=== PATIENT | female | born 1995 | race Caucasian/White ===

== ENCOUNTER 2019-12-14 00:35 | Inpatient (IN) | payer BC, OTHER ==
[2019-12-14 01:10] VITALS: BMI 22.3
--- NOTE | 2019-12-14 02:50 | PDOC ---
Attending Attestation - Resident Resident Name: Jaime Gloria - ED Attending Attestation I have performed the following: I have examined & evaluated the patient, The case was reviewed & discussed with the resident, I agree w/resident's findings & plan - HPI HPI: 12/14/19 04:49 Pt comes with fever and diarrhea. She has a concerning structural heart history. Pt ate food at a constitution party, but was the only one amonge her friends to have a fever and diarrhea. 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 12/14/19 07:02 Pt was given an oral dose of 1g zithromax. 12/14/19 19:59 Pt will be signed out to the day ER doctor. Discharge - Discharge Information Problems reviewed: Yes Clinical Impression/Diagnosis: Fever, Diarrhea, Tachycardia - Follow up/Referral - Patient Discharge Instructions - Post Discharge Activity
[2019-12-14] MEDS ORDERED: SODIUM CHLORIDE 0.9% 500 ML INFUS.BAG IV ONE ×2 (02:51→05:34)
[2019-12-14] MEDS ORDERED: ACETAMINOPHEN 1000 MG/100 ML VIAL (NON FORMULARY) IVPB ONE (02:51)
[2019-12-14] MEDS ORDERED: ACETAMINOPHEN INJECTION 100 ML IVPB ONE (03:04)
[2019-12-14] MEDS ORDERED: ONDANSETRON 4 MG/2 ML VIAL IVPUSH ONE (03:11)
[2019-12-14 03:21] LABS: BASO % 0.2 % (0-2.0); HEMATOCRIT 37.6 % (32.4-45.2); HEMOGLOBIN 13.3 GM/dL (10.7-15.3); LYMPH % 4.9 % (8-40); MCH 33.7 pg (25.7-33.7); MCHC 35.3 g/dl (32.0-36.0); MEAN CELL VOLUME 95.4 fl (80-96); MEAN PLT VOLUME 8.2 fl (7.5-11.1); MONO % 3.5 % (3.8-10.2); NEUT % 91.4 % (42.8-82.8); PLATELET COUNT 224 K/MM3 (134-434); RBC 3.95 M/mm3 (3.60-5.2); RDW 12.3 % (11.6-15.6); WHITE BLOOD COUNT 10.4 K/mm3 (4.0-10.0)
[2019-12-14 03:35] LABS: INR 1.26 (0.83-1.09); PROTHROMBIN TIME (PATIENT) 14.9 SEC (9.7-13.0)
[2019-12-14 03:41] LABS: ALBUMIN 3.4 g/dl (3.4-5.0); ALK PHOS 53 U/L (45-117); ANION GAP 8 MMOL/L (8-16); BILIRUBIN,TOTAL 0.6 mg/dL (0.2-1); BLOOD UREA NITROGEN 4.1 mg/dL (7-18); CALCIUM 8.5 mg/dL (8.5-10.1); CHLORIDE 102 mmol/L (98-107); CO2 23 mmol/L (21-32); CREATININE 0.7 mg/dL (0.55-1.3); GLUCOSE,RANDOM 106 mg/dL (74-106); POTASSIUM 3.3 mmol/L (3.5-5.1); SGOT/AST 8 U/L (15-37); SGPT/ALT 11 U/L (13-61); SODIUM 133 mmol/L (136-145); TOT PROT 7.1 g/dl (6.4-8.2)
[2019-12-14] MEDS ORDERED: MAGNESIUM SULF 50% (8.12 MEQ/2 ML-1 GM VIAL) IVPB ONE (04:26)
[2019-12-14] MEDS ORDERED: POTASSIUM CHLORIDE TABS 20 MEQ TABLET.ER (FP) PO ONE (04:26)
[2019-12-14] MEDS ORDERED: POTASSIUM CHLORIDE ORAL LIQUID 20 MEQ/15 ML ONE (04:28)
[2019-12-14] MEDS ORDERED: MAGNESIUM SULFATE IN WATER 2 GM/50 ML IVPB IVPB ONE (04:29)
[2019-12-14 04:30] LABS: HCG,QUALITATIVE URINE Negative
[2019-12-14 04:50] LABS: URINE APPEARANCE CLEAR; URINE BILIRUBIN NEGATIVE (NEGATIVE); URINE COLOR YELLOW; URINE GLUCOSE (UA) NEGATIVE (NEGATIVE); URINE KETONE TRACE (NEGATIVE); URINE LEUK ESTERASE NEGATIVE (NEGATIVE); URINE NITRITE NEGATIVE (NEGATIVE); URINE PROTEIN NEGATIVE (NEGATIVE); URINE UROBILINOGEN 0.2 mg/dL (0.2-1.0)
--- NOTE | 2019-12-14 05:19 | PDOC ---
History of Present Illness - General Chief Complaint: Diarrhea Stated Complaint: DIARRHEA Time Seen by Provider: 12/14/19 02:30 - History of Present Illness Initial Comments: HPI Pt is a 24 yo M with PMH of VSD in childhood (pt reports it has now closed) and regurgitant valve (pt unsure which valve; follows with Dr. Kurtz - cardiology) presenting with 1 day history fever (101 at home) and diarrhea for 1 day. Pt reports she developed a fever and diarrhea the evening before she is coming in. She reports at least 15 episodes of watery, non-bloody diarrhea. Also with associated nausea, mild-moderate cramping abdominal pain, generalized weakness, myalgias, and chest tightness that resembles episodes of anxiety she has felt in the past. Denies vomiting, constipation, sick contacts, recent travel, cough, congestion, rhinorrhea, SOB, wheezing, sore throat, or dysuria. Of note, pt had a "foreign beef" several days ago with a friend. The friend had abdominal discomfort/pain but no diarrhea. PMHX: as in HPI PSHX: as in HPI Meds: none Allergies: nkda Tob: denies Etoh: ocassional Rec drugs: denies PCP: Dr. Bird MARTINEZ GENERAL/CONSTITUTIONAL: + fevers, chills, myalgia, generalized weakness, HEAD, EYES, EARS, NOSE AND THROAT: No change in vision. No ear pain or discharge. No sore throat. CARDIOVASCULAR: No chest pain or shortness of breath; + chest tightness RESPIRATORY: No cough, wheezing, or hemoptysis. GASTROINTESTINAL: No vomiting or constipation. + nausea, watery diarrhea, generalized abdominal pain GENITOURINARY: No dysuria, frequency, or change in urination. MUSCULOSKELETAL: No joint or muscle swelling or pain. No neck or back pain. SKIN: No rash NEUROLOGIC: No headache, vertigo, loss of consciousness, or change in strength/sensation. ENDOCRINE: No increased thirst. No abnormal weight change HEMATOLOGIC/LYMPHATIC: No anemia, easy bleeding, or history of blood clots. ALLERGIC/IMMUNOLOGIC: No hives or skin allergy. PE GENERAL: Awake, alert, and fully oriented, in no acute distress HEAD: No signs of trauma, normocephalic, atraumatic EYES: PERRLA, EOMI, sclera anicteric, conjunctiva clear ENT: Auricles normal inspection, hearing grossly normal, nares patent, oropharynx clear without exudates. Dry mucosa. NECK: Normal ROM, supple, no lymphadenopathy, JVD, or masses LUNGS: No distress, speaks full sentences, clear to auscultation bilaterally HEART: Tachycardia and regular rhythm, normal S1 and S2, no murmurs, rubs or gallops, peripheral pulses normal and equal bilaterally. ABDOMEN: Soft, nontender, normoactive bowel sounds. Mild discomfort to palpation but no tenderness. EXTREMITIES : Normal inspection, Normal range of motion, no edema. No clubbing or cyanosis. NEUROLOGICAL: Cranial nerves II through XII grossly intact. Normal speech, normal gait, no focal sensorimotor deficits SKIN: Warm, Dry, normal turgor, no rashes or lesions noted 12/14/19 06:21 Past History - Medical History Allergies/Adverse Reactions: Allergies Allergy/AdvReac Type Severity Reaction Status Date / Time No Known Allergies Allergy Verified 12/14/19 00:45 Home Medications: Ambulatory Orders No Home Medications 0 dose .ROUTE UTDICT 10/05/13 Seizures: Yes - Reproductive History Is Patient Now?: No - Immunization History Immunization Up to Date: Yes - Psycho-Social/Smoking History Smoking Status: No Smoking History: Never smoked Have you smoked in the past 12 months: No Number of Cigarettes Smoked Daily: 0 Information on smoking cessation initiated: No - Substance Abuse Hx (Audit-C & DAST Scrn) How often the patient has a drink containing alcohol: Never Score: In Men: 4 or > Positive; In Women: 3 or > Positive: 0 Screen Result (Pos requires Nsg. Audit-10AR): Negative In the last yr the pt used illegal drug/Rx for NonMed reason: No Score: Yes response is considered Positive: 0 Screen Result (Positive result requires Nsg. DAST-10): Negative *Physical Exam - Vital Signs Last Vital Signs Temp Pulse Resp BP Pulse Ox 97.9 F 104 H 18 105/69 98 12/14/19 03:51 12/14/19 03:41 12/14/19 03:41 12/14/19 00:45 12/14/19 03:41 ED Treatment Course - LABORATORY CBC & Chemistry Diagram: 12/14/19 03:01 12/14/19 03:01 - ADDITIONAL ORDERS Additional order review: Laboratory Results 12/14/19 12/14/1920 03:45 03:01 03:01 PT with INR 14.90 H INR 1.26 H Sodium 133 L Potassium 3.3 L Chloride 102 Carbon Dioxide 23 Anion Gap 8 BUN 4.1 L Creatinine 0.7 Est GFR (CKD-EPI)AfAm 141.54 Est GFR (CKD-EPI)NonAf 122.12 Random Glucose 106 Calcium 8.5 Total Bilirubin 0.6 AST 8 L ALT 11 L Alkaline Phosphatase 53 Total Protein 7.1 Albumin 3.4 Urine Color Yellow Urine Appearance Clear Urine pH 6.0 Ur Specific Pearce 1.009 L Urine Protein Negative Urine Glucose (UA) Negative Urine Ketones Trace H Urine Blood Negative Urine Nitrite Negative Urine Bilirubin Negative Urine Urobilinogen 0.2 Ur Leukocyte Esterase Negative Urine HCG, Qual Negative 12/14/19 03:01 RBC 3.95 MCV 95.4 MCHC 35.3 RDW 12.3 MPV 8.2 Neutrophils % 91.4 H Lymphocytes % 4.9 L D Monocytes % 3.5 L Eosinophils % 0.0 Basophils % 0.2 - Medications Given in the ED: ED Medications Discontinued Medications Generic Name Dose Route Start Last Admin Trade Name Freq PRN Reason Stop Dose Admin Acetaminophen 1,000 mg 12/14/19 02:51 12/14/19 03:07 Ofirmev Injection - IVPB 12/14/19 02:52 1,000 mg ONCE ONE Administration Magnesium Sulfate 2 gm 12/14/19 04:26 12/14/19 04:33 Magnesium Sulfate IVPB 12/14/19 04:27 2 gm ONCE ONE Administration Ondansetron HCl 4 mg 12/14/19 03:11 12/14/19 03:21 Zofran Injection IVPUSH 12/14/19 03:12 4 mg ONCE ONE Administration Potassium Chloride 40 meq 12/14/19 04:26 12/14/19 04:33 K-Dur - PO 12/14/19 04:27 40 meq ONCE ONE Administration Sodium Chloride 1,000 ml 12/14/19 02:51 12/14/19 03:04 Normal Saline - IV 12/14/19 02:52 1,000 ml ONCE ONE Administration Medical Decision Making - Medical Decision Making MDM Pt is a 24 yo M with PMH of VSD in childhood (pt reports it has now closed) and regurgitant valve (pt unsure which valve; follows with Dr. Kurtz - cardiology) presenting with 1 day history fever (101 at home) and diarrhea for 1 day. DDX including but not limited to: E. Coli infection, viral gastroenteritis, less likely but will r/o appendicitis clinically, UTI W/U: -CBC, CMP, UA, blood culture TX: - IVF hydration - IV tylenol - IV zofran 12/14/19 05:19 -Labs with mild leukocytosis (10.5), Na 133, K 3.3 -Will given KCl, and Mg Sulfate. 12/14/19 05:27 - Pt remains tachycardic after IV fluids and IV tylenol - In setting of valvular defect, concern for possible bacteremia - Will give azithromycin and plan to admit - Will get EKG 12/14/19 05:39 - EKG with NSR, sinus tachycardia (103 bpm) 12/14/19 07:06 Pt signed out to admitting team. Stool culture and C. Diff panel added, per admitting team request. 12/14/19 07:20 Discharge - Discharge Information Problems reviewed: Yes Clinical Impression/Diagnosis: Fever, Diarrhea, Tachycardia - Follow up/Referral Referrals: Pillo Ferreira MD [Primary Care Provider] - - Patient Discharge Instructions - Post Discharge Activity
[2019-12-14] MEDS ORDERED: AZITHROMYCIN 500 MG TABLET PO ONE (05:33)
[2019-12-14] MEDS ORDERED: AZITHROMYCIN 250 MG TABLET ONE (05:38)
[2019-12-14 06:05] LABS: PLATELET ESTIMATE ADEQUATE
[2019-12-14] MEDS ORDERED: ONDANSETRON 4 MG/2 ML VIAL IVPUSH PRN (08:21)
--- NOTE | 2019-12-14 08:24 | HP ---
CHIEF COMPLAINT: diarrhea PCP: Cardio: Dr. Kurtz HISTORY OF PRESENT ILLNESS: 24 yo F with PMH of VSD in childhood (pt reports it has now closed on its own) and regurgitant valve (pt unsure which valve) presenting with 1 day fever , diarrhea, abdominal cramping. She reports at least 20 episodes of watery diar dari. Also with associated nausea, mild-moderate cramping abdominal pain, generalized weakness, myalgias, and chest tightness that resembles episodes of anxiety she has felt in the past. she endorses seeing red specks in the diarrhea. Denies vomiting, constipation, sick contacts, recent travel, cough, congestion, rhinorrhea, SOB, wheezing, sore throat, or dysuria. no one at home/ friends with similar symptoms. ER course was notable for: (1)IVF Recent Travel: denies PAST MEDICAL HISTORY: VSD, cardiac regurg, hx of lyme dx PAST SURGICAL HISTORY:denies FH: grandpa with cancer Social History: Smoking:denies Alcohol:social 2x/wk Drugs: denies Allergies No Known Allergies Allergy (Verified 12/14/19 00:45) HOME MEDICATIONS: Home Medications Medication Instructions Recorded No Home Medications 0 dose .ROUTE UTDICT 10/05/13 REVIEW OF SYSTEMS CONSTITUTIONAL: PResent: fever, chills, weakness Absent: malaise, loss of appetite, weight change HEENT: Absent: rhinorrhea, nasal congestion, throat pain, throat swelling, difficulty swallowing, mouth swelling, ear pain, eye pain, visual changes CARDIOVASCULAR: Absent: chest pain, syncope, palpitations, irregular heart rate, lightheadedness, peripheral edema RESPIRATORY: Absent: cough, shortness of breath, dyspnea with exertion, orthopnea, wheezing, stridor, hemoptysis GASTROINTESTINAL: Absent: abdominal pain, abdominal distension, nausea, vomiting, diarrhea, constipation, melena, hematochezia GENITOURINARY: Absent: dysuria, frequency, urgency, hesitancy, hematuria, flank pain, genital pain MUSCULOSKELETAL: Absent: myalgia, arthralgia, joint swelling, back pain, neck pain SKIN: Absent: rash, itching, pallor HEMATOLOGIC/IMMUNOLOGIC: Absent: easy bleeding, easy bruising, lymphadenopathy, frequent infections ENDOCRINE: Absent: unexplained weight gain, unexplained weight loss, heat intolerance, cold intolerance NEUROLOGIC: Absent: headache, focal weakness or paresthesias, dizziness, unsteady gait, seizure, mental status changes, bladder or bowel incontinence PHYSICAL EXAMINATION Vital Signs - 24 hr 12/14/19 12/14/19 12/14/19 00:45 03:41 03:51 Temperature 101.1 F H 97.9 F Pulse Rate 130 H Pulse Rate [ 104 H Left Radial] Respiratory 20 18 Rate Blood Pressure 105/69 Blood Pressure [Left Arm] O2 Sat by Pulse 99 98 Oximetry (%) 12/14/19 05:13 Temperature Pulse Rate Pulse Rate [ 101 H Left Radial] Respiratory 18 Rate Blood Pressure Blood Pressure 108/68 [Left Arm] O2 Sat by Pulse 100 Oximetry (%) GENERAL: Awake, alert, and fully oriented, in no acute distress. HEAD: Normal with no signs of trauma. EARS, NOSE, THROAT: Ears normal, nares patent, oropharynx clear without exudates. Moist mucous membranes. NECK: Normal range of motion, supple without lymphadenopathy, JVD, or masses. LUNGS: Breath sounds equal, clear to auscultation bilaterally. No accessory muscle use. HEART: Regular rate and rhythm, normal S1 and S2 without murmur ABDOMEN: Soft, nontender, not distended, normoactive bowel sounds, no guarding, no rebound, no masses. MUSCULOSKELETAL: Normal range of motion at all joints. No bony deformities or tenderness. UPPER EXTREMITIES: 2+ pulses, warm, well-perfused. No cyanosis. No clubbing. No peripheral edema. LOWER EXTREMITIES: 2+ pulses, warm, well-perfused. No calf tenderness. No peripheral edema. NEUROLOGICAL: Cranial nerves II-XII intact. Normal speech. PSYCHIATRIC: Cooperative. Good eye contact. Appropriate mood and affect. SKIN: Warm, dry, normal turgor, no rashes or lesions noted, normal capillary refill. CBC, BMP 12/14/19 14:32 12/14/19 08:22 ASSESSMENT/PLAN: 24 yo F PMH VSD, cardiac regurg p/w diarrhea, fever admitted for possible gastroenteritis Sepsis likely 2/2 gastroenteritis - WBC 10, Tm 101.1, sinus tachycardia - pending Bcx, UA neg - pending Cdif, stool cultures, O&P -CXR reviewed, no acute path - COVID pending - c/w IVF - zofran as needed - negative . on control. regular cycle- due for period in 7 days - TSH pending cardiac VSD, regurg - EKG reviewed, sinus tachy - trop negative IVF @ 100 monitor lytes regular diet early ambulation, SCDs admit to medicine Family Medical History Family History: As Documented Family Hx Cancer: Grandfather (paternal) Visit type - Emergency Visit Emergency Visit: Yes ED Registration Date: 12/14/19 Care time: The patient presented to the Emergency Department on the above date and was hospitalized for further evaluation of their emergent condition. - New Patient This patient is new to me today: Yes Date on this admission: 12/15/19 - Critical Care Critical Care patient: No ATTENDING PHYSICIAN STATEMENT I saw and evaluated the patient. I reviewed the resident's note and discussed the case with the resident. I agree with the resident's findings and plan as documented. SUBJECTIVE: OBJECTIVE: ASSESSMENT AND PLAN:
[2019-12-14] MEDS: SODIUM CHLORIDE 1,000 ML IV SCH (08:32)
[2019-12-14] MEDS ORDERED: ACETAMINOPHEN 325 MG TABLET (FP) PO PRN (08:35)
--- NOTE | 2019-12-14 11:29 | PN ---
Teaching Attending Note Name of Resident: Fatoumata Klein ATTENDING PHYSICIAN STATEMENT I saw and evaluated the patient. I reviewed the resident's note and discussed the case with the resident. I agree with the resident's findings and plan as documented. SUBJECTIVE: 24 yo f w/ PMH VSD (closed, follows w/ Dr. Kurtz) c/o a 1 day h/o watery diarrhea, abdominal cramping and fever for 1 day. Pt describes 20 episodes of nonbloody, watery diarrhea. SSX associated w/ nausea, generalized weakness and myalgias. Patient endorses having "foreign beef" with a friend several days ago. Patient's friend endorses abdominal cramping, but denies other ssx. Patient denies other sick contacts or sick individuals at home. ROS negative except for HPI OBJECTIVE: Vital Signs Temperature 97.9 F 12/14/19 03:51 Pulse Rate 112 H 12/14/19 08:32 Respiratory Rate 20 12/14/19 08:32 Blood Pressure 108/67 12/14/19 08:32 O2 Sat by Pulse Oximetry (%) 100 12/14/19 08:32 Physical Exam: General: A&Ox3 Eyes: LUNA, EOMI Cardio: RRR, no murmurs, gallops, rubs noted Abdominal: Soft, nontender, nondistended, normal bowel sounds heard Neuro: no focal deficits CBC,CMP WBC 10.4 K/mm3 (4.0-10.0) H 12/14/19 03:01 RBC 3.95 M/mm3 (3.60-5.2) 12/14/19 03:01 Hgb 13.3 GM/dL (10.7-15.3) 12/14/19 03:01 Hct 37.6 % (32.4-45.2) 12/14/19 03:01 MCV 95.4 fl (80-96) 12/14/19 03:01 MCH 33.7 pg (25.7-33.7) 12/14/19 03:01 MCHC 35.3 g/dl (32.0-36.0) 12/14/19 03:01 RDW 12.3 % (11.6-15.6) 12/14/19 03:01 Plt Count 224 K/MM3 (134-434) 12/14/19 03:01 MPV 8.2 fl (7.5-11.1) 12/14/19 03:01 Absolute Neuts (auto) 9.5 K/mm3 (1.5-8.0) H 12/14/19 03:01 Total Counted 100 12/14/19 03:01 Neutrophils % 91.4 % (42.8-82.8) H 12/14/19 03:01 Neutrophils % (Manual) 83.0 % (42.8-82.8) H 12/14/19 03:01 Band Neutrophils % 11.0 % (0-10) H 12/14/19 03:01 Lymphocytes % 4.9 % (8-40) L D 12/14/19 03:01 Lymphocytes % (Manual) 2.0 % (8-40) L 12/14/19 03:01 Monocytes % 3.5 % (3.8-10.2) L 12/14/19 03:01 Monocytes % (Manual) 3 % (3.8-10.2) L 12/14/19 03:01 Eosinophils % 0.0 % (0-4.5) 12/14/19 03:01 Basophils % 0.2 % (0-2.0) 12/14/19 03:01 Nucleated RBC % 0 % (0-0) 12/14/19 03:01 Metamyelocytes 1 % (0-2) 12/14/19 03:01 Platelet Estimate Adequate 12/14/19 03:01 Platelet Comment No clotting detected 12/14/19 03:01 Platelet Comment Large platelets 12/14/19 03:01 Sodium 133 mmol/L (136-145) L 12/14/19 03:01 Potassium 3.3 mmol/L (3.5-5.1) L 12/14/19 03:01 Chloride 102 mmol/L (98-107) 12/14/19 03:01 Carbon Dioxide 23 mmol/L (21-32) 12/14/19 03:01 Anion Gap 8 MMOL/L (8-16) 12/14/19 03:01 BUN 4.1 mg/dL (7-18) L 12/14/19 03:01 Creatinine 0.7 mg/dL (0.55-1.3) 12/14/19 03:01 Est GFR (CKD-EPI)AfAm 141.54 12/14/19 03:01 Est GFR (CKD-EPI)NonAf 122.12 12/14/19 03:01 Random Glucose 106 mg/dL (74-106) 12/14/19 03:01 Calcium 8.5 mg/dL (8.5-10.1) 12/14/19 03:01 Total Bilirubin 0.6 mg/dL (0.2-1) 12/14/19 03:01 AST 8 U/L (15-37) L 12/14/19 03:01 ALT 11 U/L (13-61) L 12/14/19 03:01 Alkaline Phosphatase 53 U/L (45-117) 12/14/19 03:01 Total Protein 7.1 g/dl (6.4-8.2) 12/14/19 03:01 Albumin 3.4 g/dl (3.4-5.0) 12/14/19 03:01 ASSESSMENT AND PLAN: 33 yo f. w/ PMH VSD c/o nonbloody, watery diarrhea, fever and cramping for the past 1 day. Had foreign beef several days ago w/ friend who had mild abdominal pain as well. #diarrhea likely 2/2 viral gastroenteritis r/o Covid-19 -pt had COVID swab done at urgent care recently, repeated here. CXR clear. No respiratory complaints -patient w/ one episode of fever in ED, afebrile since -labs w/ very mild elevation in WBC count, hypokalemia -patient able to tolerate diet -patient ambulatory -s/p 1.5 L NS in ED -no indication for ABX at this time given age, improvement with fluids and symptomology -will monitor for fever/WBC bump. Will consider ABX therapy if patient persistently febrile. -IVF w/ NS @ 100 #VSD -follows w/ cardio -EKG unchanged -no cardiac ssx -no indication for tele at this time.
[2019-12-14 14:19] LABS: LIPASE 51 U/L (73-393); MAGNESIUM 1.6 mg/dL (1.8-2.4); PHOSPHOROUS 2.3 mg/dL (2.5-4.9)
[2019-12-14 20:30] LABS: HEMATOCRIT 35.3 % (32.4-45.2); HEMOGLOBIN 12.1 GM/dL (10.7-15.3); MCH 33.2 pg (25.7-33.7); MCHC 34.3 g/dl (32.0-36.0); MEAN CELL VOLUME 96.6 fl (80-96); MEAN PLT VOLUME 8.2 fl (7.5-11.1); PLATELET COUNT 220 K/MM3 (134-434); RBC 3.66 M/mm3 (3.60-5.2); RDW 12.7 % (11.6-15.6); WHITE BLOOD COUNT 6.8 K/mm3 (4.0-10.0)
[2019-12-14 21:07] LABS: ANION GAP 5 MMOL/L (8-16); BLOOD UREA NITROGEN 3.8 mg/dL (7-18); CALCIUM 7.8 mg/dL (8.5-10.1); CHLORIDE 109 mmol/L (98-107); CO2 24 mmol/L (21-32); CREATININE 0.7 mg/dL (0.55-1.3); GLUCOSE,RANDOM 115 mg/dL (74-106); LIPASE 86 U/L (73-393); PHOSPHOROUS 1.7 mg/dL (2.5-4.9); SODIUM 139 mmol/L (136-145)
[2019-12-15] MEDS ORDERED: POTASSIUM PHOSPHATE 15 MM in SODIUM CHLORIDE 250 ML IVPB ONE (03:15)
[2019-12-15 08:17] LABS: HEMATOCRIT 36.6 % (32.4-45.2); HEMOGLOBIN 12.3 GM/dL (10.7-15.3); MCH 32.4 pg (25.7-33.7); MCHC 33.5 g/dl (32.0-36.0); MEAN CELL VOLUME 96.6 fl (80-96); MEAN PLT VOLUME 7.9 fl (7.5-11.1); PLATELET COUNT 248 K/MM3 (134-434); RBC 3.79 M/mm3 (3.60-5.2); RDW 12.4 % (11.6-15.6); WHITE BLOOD COUNT 5.8 K/mm3 (4.0-10.0)
[2019-12-15 08:47] LABS: BLOOD UREA NITROGEN 3.4 mg/dL (7-18); CALCIUM 8.3 mg/dL (8.5-10.1); CREATININE 0.6 mg/dL (0.55-1.3); MAGNESIUM 2.1 mg/dL (1.8-2.4); PHOSPHOROUS 3.1 mg/dL (2.5-4.9); POTASSIUM 3.9 mmol/L (3.5-5.1)
[2019-12-15 11:24] LABS: OPIATES, URI NEGATIVE ng/ml (CUTOFF=300); PHENCYCLIDINE,URINE NEGATIVE ng/ml (CUTOFF=25); URINE AMPHETAMINES NEGATIVE ng/ml (CUTOFF=500); URINE BARBITURATES NEGATIVE ng/ml (CUTOFF=200); URINE BENZODIAZEPINES NEGATIVE ng/ml (CUTOFF=200)
[2019-12-15 12:03] LABS: COCAINE, UR NEGATIVE ng/ml (CUTOFF=300); METHADONE, UR NEGATIVE ng/ml (CUTOFF=300)
[2019-12-15] MEDS: SODIUM CHLORIDE 1,000 ML IV SCH (14:12)
[2019-12-15 14:24] VITALS: BP 101/58; PULSE 62; TEMP 98.5
[2019-12-15] MEDS ORDERED: ZINC OXIDE/PANTHENOL/VITAMIN E 56 GM TUBE TP PRN (14:28)
--- NOTE | 2019-12-15 14:44 | DS ---
Physical Exam: SUBJECTIVE: Some ongoing diarrheal symptoms. No abdominal pain/nausea/vomiting. No fever/chills for > 24 hours. OBJECTIVE: Afebrile, Hemodynamically Stable. Last Vital Signs Temp Pulse Resp BP Pulse Ox 98.5 F 62 18 101/58 L 99 12/15/19 13:00 12/15/19 13:00 12/15/19 13:00 12/15/19 13:00 12/15/19 13:00 HEENT - Atraumatic, Normocephalic. Heart - S1, S2, RRR Lungs - clear to auscultation Abdomen - Soft, non-tender. Bowel sounds normal. Extremities - no edema, no calf tenderness. Neuro - AAO x 3. Tone/Power normal all extremities. Laboratory Results - last 24 hr 12/14/19 12/14/19 12/14/19 03:01 06:30 08:22 WBC RBC Hgb Hct MCV MCH MCHC RDW Plt Count MPV Sodium 133 L 139 Potassium 3.3 L 4.0 Chloride 102 109 H Carbon Dioxide 23 24 Anion Gap 8 5 L BUN 4.1 L 3.8 L Creatinine 0.7 0.7 Est GFR (CKD-EPI)AfAm 141.54 141.54 Est GFR (CKD-EPI)NonAf 122.12 122.12 Random Glucose 106 115 H Calcium 8.5 7.8 L Phosphorus 2.3 L 1.7 L Magnesium 1.6 L 2.0 Total Bilirubin 0.6 AST 8 L ALT 11 L Alkaline Phosphatase 53 Creatine Kinase 48 Troponin I < 0.02 < 0.02 Total Protein 7.1 Albumin 3.4 Lipase 51 L 86 TSH 0.61 1.64 Opiates Screen Methadone Screen Barbiturate Screen Phencyclidine Screen Ur Amphetamines Screen MDMA (Ecstasy) Screen Benzodiazepines Screen Cocaine Screen U Marijuana (THC) Screen COVID-19 (STEVE) Not detected 12/14/19 12/15/19 12/15/19 14:32 07:45 07:45 WBC 6.8 5.8 RBC 3.66 3.79 Hgb 12.1 12.3 Hct 35.3 36.6 MCV 96.6 H 96.6 H MCH 33.2 32.4 MCHC 34.3 33.5 RDW 12.7 12.4 Plt Count 220 248 MPV 8.2 7.9 Sodium 137 Potassium 3.9 Chloride 108 H Carbon Dioxide 22 Anion Gap 7 L BUN 3.4 L Creatinine 0.6 Est GFR (CKD-EPI)AfAm 148.90 Est GFR (CKD-EPI)NonAf 128.48 Random Glucose 87 Calcium 8.3 L Phosphorus 3.1 Magnesium 2.1 Total Bilirubin AST ALT Alkaline Phosphatase Creatine Kinase Troponin I Total Protein Albumin Lipase TSH Opiates Screen Methadone Screen Barbiturate Screen Phencyclidine Screen Ur Amphetamines Screen MDMA (Ecstasy) Screen Benzodiazepines Screen Cocaine Screen U Marijuana (THC) Screen COVID-19 (STEVE) 12/15/19 08:15 WBC RBC Hgb Hct MCV MCH MCHC RDW Plt Count MPV Sodium Potassium Chloride Carbon Dioxide Anion Gap BUN Creatinine Est GFR (CKD-EPI)AfAm Est GFR (CKD-EPI)NonAf Random Glucose Calcium Phosphorus Magnesium Total Bilirubin AST ALT Alkaline Phosphatase Creatine Kinase Troponin I Total Protein Albumin Lipase TSH Opiates Screen Negative Methadone Screen Negative Barbiturate Screen Negative Phencyclidine Screen Negative Ur Amphetamines Screen Negative MDMA (Ecstasy) Screen Negative Benzodiazepines Screen Negative Cocaine Screen Negative U Marijuana (THC) Screen Negative COVID-19 (STEVE) Discharge Medications Medication Instructions Recorded Zinc Oxide/Panthenol/Vitamin E 1 applic TP ASDIR PRN tube 12/15/19 [Balmex Cream -] Date of Admission:12/14/19 Date of Discharge: 12/15/19 Minutes to complete discharge: 35 Discharge Summary Problems reviewed: Yes Reason For Visit: FEVER, DIARRHEA, TACHYCARDIA Current Active Problems Diarrhea (Acute) Fever (Acute) Tachycardia (Acute) Hospital Course: 24 year old female with history of VSD in childhood, presented with abdominal cramping, fever, diarrhea for 1 day, and admitted for supportive treatment of acute viral gastroenteritis. 1. Acute Viral Gastroenteritis Fever resolved, last fever > 36 hours ago Symptoms improving - no abdominal pain/nausea/vomiting. Hemodynamically stable. Cdiff and Stool Cx negative COVID PCR negative Medically stable for discharge with PCP follow up. 2. 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 Medically sable and optimized for discharge home Condition: Improved - Instructions Diet, Activity, Other Instructions: You were admitted with diarrheal symptoms and associated fever, which has now resolved. Your last fever was over 36 hours ago. Stool studies including Clostridium difficile and Stool Cultures are all negative. Your vitals and labwork are all within normal limits. You were treated for symptoms of viral gastroenteritis and are now medically stable for discharge home with Primary Care provider follow up. It may take a few days for your diarrhea to completely resolve. Referrals: Pillo Ferreira MD [Primary Care Provider] - 1 Week Disposition: HOME - Home Medications Comprehensive Discharge Medication List: Ambulatory Orders Zinc Oxide/Panthenol/Vitamin E [Balmex Cream -] 1 applic TP ASDIR PRN tube 12/15/19 This patient is new to me today: Yes Date on this admission: 12/15/19 Emergency Visit: Yes ED Registration Date: 12/14/19 Care time: The patient presented to the Emergency Department on the above date and was hospitalized for further evaluation of their emergent condition. Critical Care patient: No - Discharge Referral Referred to [facility] Med P.C.: No
--- NOTE | 2019-12-16 11:30 | EKG ---
Test Reason : Blood Pressure : / mmHG Vent. Rate : 103 BPM Atrial Rate : 103 BPM P-R Int : 148 ms QRS Dur : 082 ms QT Int : 322 ms P-R-T Axes : 069 077 -18 degrees QTc Int : 421 ms SINUS TACHYCARDIA NONSPECIFIC T WAVE ABNORMALITY ABNORMAL ECG WHEN COMPARED WITH ECG OF 05-OCT-2013 12:23, T WAVE VARIATION Confirmed by JOSS GARCIA MD ([id number]) on 12/16/2019 11:30:21 AM Referred By: Confirmed By:JOSS GARCIA MD
--- NOTE | 2019-12-18 09:26 | PN ---
Progress Note (short form) - Note Progress Note: Called pt to inform her of Campylobacter infection. verbalizes improvement. informed if new, worsening, or concerning symptoms to return to ED or call 911. answered all questions from pt and mother
== END 2019-12-15 17:51 | disposition home or self-care (01) | DRG 392 ==
LOC: JER 00:35 → JERBED 06:15 → J8W 22:08
PROVIDERS: ADMIT Internal Medicine
DX: A08.4 Viral intestinal infection, unspecified (principal); R00.0 Tachycardia, unspecified; R50.9 Fever, unspecified; D72.829 Elevated white blood cell count, unspecified
CPT/HCPCS: 36415; 71046-TC-FY; 80048; 80053; 80307; 81003; 82550; 83690; 83735; 84100; 84443; 84484; 84703; 85025; 85027; 85610; 87040; 87045; 87046; 87324; 87449; 93005; 93010; 99285-25; J0131; U0003